=== PATIENT | female | born 1980 | race Caucasian/White ===

== ENCOUNTER 2017-09-09 23:53 | Emergency (ER) | payer SELFPAY ==
[2017-09-10] MEDS ORDERED: Lorazepam 2 MG/ML VIAL ONE (00:24)
== END 2017-09-10 00:59 | disposition home or self-care (01) ==
LOC: NAV ERS 23:53
DX: F41.9 Anxiety disorder, unspecified (principal)
CPT/HCPCS: 96372; J2060